=== PATIENT | female | born 1975 ===

== ENCOUNTER 2018-03-25 23:11 | Emergency (ER) | payer OTHER ==
[2018-03-26 00:23] VITALS: BMI 29.2
[2018-03-26] MEDS ORDERED: DiphenhydrAMINE 50 mg/ml Inj IVP STA (00:24)
[2018-03-26] MEDS ORDERED: Sodium Chloride 0.9% 1,000 ML IV STA (00:24)
--- NOTE | 2018-03-26 00:24 | ED PDOC ---
Arrival/HPI - General Historian: Patient - History of Present Illness Narrative History of Present Illness (Text): 03/25/18 23:30 42 y/o female, no significant pmh, allergic to sulfa, c/o headache x 1 day with no fall or trauma. Throbbing sensation, frontal to posterior, associated with nausea, no neck stiffness, no change in vision, stated that her last bowel movement was watery but no recent antibiotic use, no abdominal pain, no night sweat, no other medical or psychological complaints. <Gera Murillo - Last Filed: 03/26/18 01:41> Past Medical History - Provider Review Nursing Documentation Reviewed: Yes <Gera Murillo - Last Filed: 03/26/18 01:41> Family/Social History - Physician Review Nursing Documentation Reviewed: Yes Family/Social History: Unknown Family HX <Gera Murillo - Last Filed: 03/26/18 01:41> Allergies/Home Meds <Gera Murillo - Last Filed: 03/26/18 01:41> <Edin Scott - Last Filed: 03/26/18 02:04> Allergies/Adverse Reactions: Allergies No Known Allergies Allergy (Verified 03/26/18 00:22) Review of Systems - Review of Systems Constitutional: absent: Fatigue ENT: absent: Hearing Changes Respiratory: absent: SOB Cardiovascular: absent: Chest Pain Gastrointestinal: Nausea. absent: Abdominal Pain, Diarrhea, Vomiting Skin: absent: Rash, Pruritis Neurological: Headache. absent: Dizziness, Focal Weakness Psychiatric: absent: Anxiety, Depression, Suicidal Ideation <Gera Murillo - Last Filed: 03/26/18 01:41> Physical Exam - Systems Exam Head: Present: Atraumatic, Normocephalic, Other (no temporal artery tendreness, no jaw claudication). No: Tenderness, Contusion, Swelling, Ecchymosis, Abrasion, Laceration Pupils: Present: PERRL Extroacular Muscles: Present: EOMI Conjunctiva: Present: Normal Mouth: Present: Moist Mucous Membranes Neck: Present: Normal Range of Motion Respiratory/Chest: Present: Clear to Auscultation, Good Air Exchange. No: Respiratory Distress, Accessory Muscle Use Cardiovascular: Present: Regular Rate and Rhythm, Normal S1, S2. No: Murmurs Abdomen: No: Tenderness, Distention, Peritoneal Signs Back: Present: Normal Inspection Upper Extremity: Present: Normal Inspection. No: Cyanosis, Edema Lower Extremity: Present: Normal Inspection. No: Edema Neurological: Present: GCS=15, CN II-XII Intact, Speech Normal, Motor Func Grossly Intact, Gait Normal, Memory Normal Skin: Present: Warm, Dry, Normal Color. No: Rashes Psychiatric: Present: Alert, Oriented x 3, Normal Insight, Normal Concentration <Gera Murillo - Last Filed: 03/26/18 01:41> Vital Signs Temp Pulse Resp BP Pulse Ox 03/26/18 01:57 18 99 03/26/18 00:35 97.5 F L 80 18 150/76 98 03/25/18 23:23 97.5 F L 80 18 150/76 100 <Edin Scott - Last Filed: 03/26/18 02:04> Medical Decision Making ED Course and Treatment: 03/25/18 23:41 -labs -CT head -IVF/reglan/benadryl -Observe and reassess 03/26/18 01:41 -urine hcg is negative -CT head No acute intracranial abnormality. -Labs are non-significant -Mg with normal limit -UA show no UTI -Headache resolved, feeling much, no pain now, no GI complaint, walking with normal gait and posture, no focal neurological deficits. -Discharge home with fioriocet, follow up with your own pmd and neurologist within 2 days, return to the ER for any new or worsening signs or symptoms. - RAD Interpretation Radiology Orders: Date of service: 03/26/2018 PROCEDURE: CT HEAD WITHOUT CONTRAST. HISTORY: headache/nausea COMPARISON: None TECHNIQUE: Axial computed tomography images were obtained through the head/brain without intravenous contrast. Radiation dose: Total exam DLP = 795.75 mGy-cm. This CT exam was performed using one or more of the following dose reduction techniques: Automated exposure control, adjustment of the mA and/or kV according to patient size, and/or use of iterative reconstruction technique. FINDINGS: HEMORRHAGE: No intracranial hemorrhage. BRAIN: Bajwa-white matter differentiation is preserved. There is no mass, mass effect or abnormal extra-axial fluid collection. There is no territorial infarction. The midline sagittal structures are normal. VENTRICLES: The ventricles are normal in size, shape and configuration. CALVARIUM: There is no calvarial fracture or extracranial soft tissue swelling. PARANASAL SINUSES: Predominantly clear. MASTOID AIR CELLS: Predominantly clear. OTHER FINDINGS: None. IMPRESSION: No acute intracranial abnormality. Marine Firefighter: Radiologist <Gera Murillo Q - Last Filed: 03/26/18 01:41> - Lab Interpretations Lab Results: Total Bilirubin 0.2 mg/dL (0.2-1.3) 03/26/18 00:25 AST 20 U/L (14-36) 03/26/18 00:25 ALT 28 U/L (7-56) 03/26/18 00:25 Alkaline Phosphatase 67 U/L (38-126) 03/26/18 00:25 Total Protein 7.6 g/dL (5.8-8.3) 03/26/18 00:25 Albumin 4.3 g/dL (3.0-4.8) 03/26/18 00:25 Globulin 3.2 gm/dL 03/26/18 00:25 Albumin/Globulin Ratio 1.3 (1.1-1.8) 03/26/18 00:25 Urine Color Yellow (YELLOW) 03/26/18 00:25 Urine Appearance Sl cloudy (CLEAR) 03/26/18 00:25 Urine pH 8.5 (4.7-8.0) 03/26/18 00:25 Ur Specific [place] 1.020 (1.005-1.035) 03/26/18 00:25 Urine Protein Negative mg/dL (<30 mg/dL) 03/26/18 00:25 Urine Glucose (UA) Negative mg/dL (NEGATIVE) 03/26/18 00:25 Urine Ketones Negative mg/dL (NEGATIVE) 03/26/18 00:25 Urine Blood Negative (NEGATIVE) 03/26/18 00:25 Urine Nitrate Negative (NEGATIVE) 03/26/18 00:25 Urine Bilirubin Negative (NEGATIVE) 03/26/18 00:25 Urine Urobilinogen 0.2 E.U./dL (<1 E.U./dL) 03/26/18 00:25 Ur Leukocyte Esterase Negative Lizy/uL (NEGATIVE) 03/26/18 00:25 - RAD Interpretation Radiology Orders: 03/26/18 00:24 HEAD W/O CONTRAST [CT] Stat - Medication Orders Current Medication Orders: Discontinued Medications Diphenhydramine HCl (Benadryl) 50 mg IVP STAT STA Stop: 03/26/18 00:25 Last Admin: 03/26/18 00:24 Dose: 50 mg IVP Administration Document 03/26/18 00:24 AD (Rec: 03/26/18 00:35 AD [facility]-ER-20) Charges for Administration # of IVP Administrations 1 Sodium Chloride (Sodium Chloride 0.9%) 1,000 mls @ 999 mls/hr IV .Q1H1M STA Stop: 03/26/18 01:24 Last Admin: 03/26/18 00:24 Dose: 999 mls/hr eMAR Start Stop Document 03/26/18 00:24 AD (Rec: 03/26/18 00:35 AD [facility]-ER-20) Intravenous Solution Start Date 03/26/18 Start Time 00:24 Metoclopramide HCl (Reglan) 10 mg IVP STAT STA Stop: 03/26/18 00:25 Last Admin: 03/26/18 00:24 Dose: 10 mg IVP Administration Document 03/26/18 00:24 AD (Rec: 03/26/18 00:35 AD [facility]-ER-20) Charges for Administration # of IVP Administrations 1 <Edin Scott - Last Filed: 03/26/18 02:04> - PA / GREEN MARKETING SPECIALIST / Resident Statement KI has reviewed & agrees with the documentation as recorded. <Gera Murillo - Last Filed: 03/26/18 01:41> - PA / GREEN MARKETING SPECIALIST / Resident Statement KI has reviewed & agrees with the documentation as recorded. <Edin Scott - Last Filed: 03/26/18 02:04> Disposition/Present on Arrival - Present on Arrival Any Indicators Present on Arrival: No History of DVT/PE: No History of Uncontrolled Diabetes: No Urinary Catheter: No History of Decub. Ulcer: No - Disposition Have Diagnosis and Disposition been Completed?: Yes Disposition Time: 01:43 Patient Plan: Discharge <Gera Murillo - Last Filed: 03/26/18 01:41> <Edin Scott - Last Filed: 03/26/18 02:04> - Disposition Diagnosis: Headache Disposition: HOME/ ROUTINE Condition: IMPROVED Additional Instructions: -Discharge home with fioriocet, follow up with your own pmd and neurologist within 2 days, return to the ER for any new or worsening signs or symptoms. Prescriptions: Acetaminophen/Butalbital/Caf [Fioricet] 1 tab PO QID PRN #20 tab PRN Reason: Other Referrals: Brannon Amin MD [Staff Provider] - Follow up with primary [facility] [Outside] - Follow up with primary Forms: WORK NOTE
[2018-03-26 00:39] LABS: PH,URINE 8.5 (4.7-8.0); URINE BILIRUBIN NEGATIVE (NEGATIVE); URINE BLOOD NEGATIVE (NEGATIVE); URINE GLUCOSE (UA) NEGATIVE (NEGATIVE); URINE LEUKOCYTE ESTERASE NEGATIVE Leu/uL (NEGATIVE); URINE PROTEIN NEGATIVE mg/dL (<30 mg/dL); URINE UROBILINOGEN 0.2 E.U./dL (<1 E.U./dL)
[2018-03-26 00:41] LABS: BASO # 0.02 K/mm3 (0.0-2.0); BASO % 0.3 % (0.0-3.0); EOS # 0.1 (0.0-0.7); EOS % 0.9 % (1.5-5.0); GRAN # 3.32 (1.4-6.5); GRAN % 51.7 % (50.0-68.0); HEMOGLOBIN 11.6 g/dL (12.0-16.0); LYMPH # 2.7 (1.2-3.4); LYMPH % 42.3 % (22.0-35.0); MEAN CORPUSCULAR HEMOGLOBIN 25.6 pg (25.0-35.0); MEAN PLATELET VOLUME 10.1 fl (7.0-11.0); MONO # 0.3 (0.1-0.6); MONO % 4.8 % (1.0-6.0); RBC 4.54 10^6/uL (3.5-6.1); RED CELL DISTRIBUTION WIDTH 13.1 % (11.5-14.5); WHITE BLOOD COUNT 6.4 10^3/uL (4.5-11.0)
[2018-03-26 00:44] VITALS: BP 150/76; PULSE 80; RESP 18; TEMP 97.5
[2018-03-26 00:47] LABS: URINE APPEARANCE SL CLOUDY (CLEAR); URINE COLOR YELLOW (YELLOW)
[2018-03-26 00:56] LABS: ALB/GLOB RATIO 1.3 (1.1-1.8); ALBUMIN 4.3 g/dL (3.0-4.8); ALT/SGPT 28 U/L (7-56); AST/SGOT 20 U/L (14-36); BLOOD UREA NITROGEN 21 mg/dL (7-21); CALCIUM 9.6 mg/dL (8.4-10.5); GFR NON-AFRICAN AMERICAN > 60
--- NOTE | 2018-03-26 01:28 | CT ---
Date of service: 03/26/2018 PROCEDURE: CT HEAD WITHOUT CONTRAST. HISTORY: headache/nausea COMPARISON: None TECHNIQUE: Axial computed tomography images were obtained through the head/brain without intravenous contrast. Radiation dose: Total exam DLP = 795.75 mGy-cm. This CT exam was performed using one or more of the following dose reduction techniques: Automated exposure control, adjustment of the mA and/or kV according to patient size, and/or use of iterative reconstruction technique. FINDINGS: HEMORRHAGE: No intracranial hemorrhage. BRAIN: Bajwa-white matter differentiation is preserved. There is no mass, mass effect or abnormal extra-axial fluid collection. There is no territorial infarction. The midline sagittal structures are normal. VENTRICLES: The ventricles are normal in size, shape and configuration. CALVARIUM: There is no calvarial fracture or extracranial soft tissue swelling. PARANASAL SINUSES: Predominantly clear. MASTOID AIR CELLS: Predominantly clear. OTHER FINDINGS: None. IMPRESSION: No acute intracranial abnormality.
[2018-03-26 01:58] VITALS: O2SAT 99
== END 2018-03-26 01:57 | disposition home or self-care (01) ==
LOC: ED 23:11
DX: R51 Headache (principal)
CPT/HCPCS: 70450; 80053; 81003; 83735; 85025; 96374; 96375; 99285; J1200; J2765; J7030